=== PATIENT | male | born 1975 | race Caucasian/White ===

== ENCOUNTER 2020-11-19 08:01 | Outpatient (REF) | payer MEDICAID, SELFPAY | END 2020-11-19 08:02 | disposition home or self-care (01) | LOC: HO.LAB 08:01 | PROVIDERS: Visit Provider Internal Medicine | DX: Z00.01 Encounter for general adult medical examination with abnormal findings (principal); F32.9 Major depressive disorder, single episode, unspecified; F43.10 Post-traumatic stress disorder, unspecified; G56.01 Carpal tunnel syndrome, right upper limb; Z79.891 Long term (current) use of opiate analgesic | CPT/HCPCS: 36415; 87522 ==